=== PATIENT | male | born 1985 | race Caucasian/White ===

== ENCOUNTER 2016-06-17 09:29 | Emergency (ER) | payer OTHER ==
[~2016-06-17] VITALS: Ht 182.9 cm; Wt 90.9 kg
[2016-06-17 09:31] VITALS: BP 118/82; TEMP 98.4
[2016-06-17 10:44] VITALS: PULSE 76
== END 2016-06-17 10:44 | disposition home or self-care (01) ==
LOC: COL.ER 09:29
DX: S01.81XA Laceration without foreign body of other part of head, initial encounter (principal); W22.8XXA Striking against or struck by other objects, initial encounter

== ENCOUNTER → 2016-06-26 | Emergency (ER) | payer OTHER ==
[2016-06-26 08:21] VITALS: BP 132/72; PULSE 80; TEMP 98.4
== END | disposition home or self-care (01) ==
LOC: COL.ER 08:17
DX: Z48.02 Encounter for removal of sutures (principal)